=== PATIENT | male | born 2000 | race Caucasian/White ===

== ENCOUNTER 2019-01-23 20:52 | Emergency (ER) | payer OTHER ==
[~2019-01-23] VITALS: Ht 180.3 cm; Wt 68.0 kg
[~2019-01-23 20:52] MED LIST: ABILIFY10 MG; ACCUNEB SO1.25 MG/1 INH; AMOXICILLIN250 M1 PO; CLARITIN10 MG PO; COMPAZINE5 MG; IMITREX5 MG; MELATONIN1 M1 SL; VISTARIL50 MG PO; ZOLOFT100 MG
[2019-01-23] MEDS ORDERED: HYDROCODON-ACE1 EAC8 PO (21:11)
[2019-01-23] MEDS ORDERED: AMOXICILLIN 50500 MG PO (21:12)
[2019-01-23 22:33] LABS: URINE BILIRUBIN NEGATIVE (Negative); URINE BLOOD NEGATIVE (Negative); URINE CLARITY CLEAR; URINE COLOR YELLOW; URINE GLUCOSE-RANDOM NEGATIVE (Negative); URINE KETONES TRACE (Negative); URINE LEUKOCYTES-REFLEX TRACE (Negative); URINE NITRITE-REFLEX NEGATIVE (Negative); URINE PROTEIN NEGATIVE (Negative); URINE UROBILINOGEN 0.2 E.U./dl (0.2-1.0)
[2019-01-23 22:38] LABS: HYALINE CASTS 0-3 Few /LPF (None Seen); MUCUS None Seen strn/LPF (None Seen); SQUAMOUS 0-3 Few /LPF (0-3)
[2019-01-23 22:39] LABS: BACTERIA-REFLEX None Seen /HPF (None Seen); CRYSTALS None Seen /LPF (None Seen); URINE RBC None Seen /HPF (0-2); URINE WBC-REFLEX 6-15 Few /HPF (0-5)
[2019-01-24 00:55] VITALS: BP 112/72
== END 2019-01-24 00:56 | disposition home or self-care (01) ==
LOC: M.ERS 20:52
PROVIDERS: Nurse Practitioner Family
DX: I86.1 Scrotal varices (principal); J45.909 Unspecified asthma, uncomplicated